=== PATIENT | female | born 2000 | race African-American/Black ===

== ENCOUNTER 2022-02-12 15:16 | Emergency (ER) | payer MEDICAID, OTHER ==
[~2022-02-12] VITALS: Ht 157.5 cm; Wt 72.7 kg
[2022-02-12 16:35] LABS: COVID AG,FIA SOURCE NASOPHARYNGEAL
[2022-02-12 17:21] VITALS: BP 128/69
== END 2022-02-12 17:23 | disposition home or self-care (01) ==
LOC: EMS 15:16
DX: R21 Rash and other nonspecific skin eruption (principal); F17.210 Nicotine dependence, cigarettes, uncomplicated; Z98.890 Other specified postprocedural states; Z20.822 Contact with and (suspected) exposure to COVID-19
CPT/HCPCS: 99283

== ENCOUNTER 2022-03-18 13:31 | Emergency (ER) | payer MEDICAID ==
[~2022-03-18] VITALS: Ht 157.5 cm; Wt 72.7 kg
[2022-03-18] MEDS: ACETAMINOPHEN 500 MG TABLET PO ONE (14:37)
[2022-03-18] MEDS: SODIUM CHLORIDE 0.9% 1,000 ML IV ONE (14:37)
[2022-03-18 14:57] LABS: BASOPHILS % (AUTO) 0.3 % (0.0-2.0); EOSINOPHILS % (AUTO) 0.1 % (1.0-6.0); HEMATOCRIT 41.3 % (36-46); HEMOGLOBIN 13.8 g/dL (12.0-16.0); LYMPHOCYTES % (AUTO) 7.6 % (22.0-44.0); MEAN CORPUSCULAR HEMOGLOBIN 34.8 pg (26.0-34.0); MEAN CORPUSCULAR HGB CONC 33.3 G/dL (31.0-37.0); MEAN CORPUSCULAR VOLUME 104 fL (80-100); MONOCYTES # (AUTO) 1.5 K/uL (0.1-1.0); MONOCYTES % (AUTO) 11.1 % (2.0-9.0); NEUTROPHILS % (AUTO) 80.9 % (40.0-70.0); PLATELET COUNT (AUTO) 203 K/uL (150-450); RED BLOOD CELL COUNT(AUTO) 3.96 MIL/uL (4.00-5.20); RED CELL DISTRIBUTION WIDTH 13.8 % (11.5-14.5)
[2022-03-18 15:15] LABS: ANION GAP 10 mmol/L (8-16); CALCIUM, TOTAL 8.5 mg/dL (8.8-10.5); CARBON DIOXIDE 24 mmol/L (22-29); CHLORIDE 96 mmol/L (98-107); CREATININE 0.84 mg/dL (0.60-1.30); GLOMERULAR FILTR. RATE CALC > 60 mL/min (>60); GLUCOSE,RANDOM 96 mg/dL (70-110); POTASSIUM 3.2 mmol/L (3.5-5.1); SODIUM SERUM 130 mmol/L (136-145); UREA NITROGEN, BLOOD 8 mg/dL (7-18)
[2022-03-18 15:26] LABS: HCG,QUANTITATIVE < 1 mIU/mL (0-6)
[2022-03-18] MEDS ORDERED: CEPH-558 PO (15:33)
[2022-03-18] MEDS ORDERED: DOXY-354 PO (15:34)
[2022-03-18 15:41] VITALS: BP 116/72
[2022-03-20] MEDS ORDERED: ACYC-138 PO (09:15)
== END 2022-03-18 15:59 | disposition home or self-care (01) ==
LOC: EMS 13:35
DX: L03.116 Cellulitis of left lower limb (principal); F17.210 Nicotine dependence, cigarettes, uncomplicated; Z90.89 Acquired absence of other organs
CPT/HCPCS: 99283; 96360; 80048; 84702; 85025; 36415; J7030

== ENCOUNTER 2022-03-28 13:16 | Emergency (ER) | payer MEDICAID ==
[~2022-03-28] VITALS: Ht 157.5 cm; Wt 72.7 kg
[~2022-03-28 13:16] MED LIST: ACYC-138 PO; CEPH-558 PO; DOXY-354 PO
[2022-03-28] MEDS ORDERED: CLINDAMYCIN PHOS 150 MG/ML 4 ML VIAL IM ONE (14:45)
[2022-03-28] MEDS ORDERED: CLIN75SO10 PO (14:49)
[2022-03-28 14:59] VITALS: BP 148/88
== END 2022-03-28 15:16 | disposition home or self-care (01) ==
LOC: EMS 13:19
DX: L03.116 Cellulitis of left lower limb (principal); F10.20 Alcohol dependence, uncomplicated; F17.210 Nicotine dependence, cigarettes, uncomplicated
CPT/HCPCS: 99283; J3490